=== PATIENT | male | born 1990 | race Caucasian/White ===

== ENCOUNTER 2016-04-17 16:23 | Emergency (ER) | payer OTHER ==
[2016-04-17] MEDS ORDERED: HYDROMORPHONE HCL 1 MG/ML SYRINGE ONE (16:55)
[2016-04-17] MEDS ORDERED: DIPHTH,PERTUSS(ACELL),TET VAC 0.5 ML VIAL IM V ONE (16:56)
[2016-04-17] MEDS ORDERED: CEPHALEXIN 500 MG CAPSULE ONE (18:51)
== END 2016-04-17 19:15 | disposition home or self-care (01) ==
LOC: ED 16:23
DX: S81.002A Unspecified open wound, left knee, initial encounter (principal); S81.001A Unspecified open wound, right knee, initial encounter; V29.9XXA Motorcycle rider (driver) (passenger) injured in unspecified traffic accident, initial encounter; Y92.410 Unspecified street and highway as the place of occurrence of the external cause; Z23 Encounter for immunization
CPT/HCPCS: 90715; 90471; 99283 ×2; 96372; J1170; A9270